=== PATIENT | male | born 1970 | race Caucasian/White ===

== ENCOUNTER 2022-05-17 13:47 | Outpatient (RCR) | payer OTHER | END 2022-05-20 | LOC: PT 13:47 | PROVIDERS: ATTEND Physician Assistant | DX: S22.070A Wedge compression fracture of T9-T10 vertebra, initial encounter for closed fracture (principal) ==

== ENCOUNTER → 2022-06-20 | Outpatient (RCR) | payer OTHER | LOC: PT 05-21 10:25 | PROVIDERS: ATTEND Physician Assistant | DX: S22.070A Wedge compression fracture of T9-T10 vertebra, initial encounter for closed fracture (principal) ==

== ENCOUNTER 2022-06-21 07:18 | Outpatient (RCR) | payer OTHER ==
[2022-07-21] MEDS ORDERED: HYDROCODON-ACE1 EA11 PO (11:32)
== END 2022-07-20 ==
LOC: PT 07:18
PROVIDERS: ATTEND Physician Assistant
DX: M48.54XA Collapsed vertebra, not elsewhere classified, thoracic region, initial encounter for fracture (principal)

== ENCOUNTER → 2022-07-11 | Outpatient (CLI) | payer OTHER | LOC: NM 08:43 | PROVIDERS: ATTEND Specialist | DX: M54.50 Low back pain, unspecified (principal); G89.29 Other chronic pain | CPT/HCPCS: 72148; 78306; A9503 ==

== ENCOUNTER 2022-07-21 10:08 | Emergency (ER) | payer OTHER ==
[~2022-07-21] VITALS: Ht 177.8 cm; Wt 69.4 kg
[2022-07-21 10:42] LABS: BASOPHILS % 0.3 % (0.0-1.0); EOSINOPHILS % 1.1 % (0.0-6.0); HEMATOCRIT 33.2 % (38.2-49.6); HEMOGLOBIN 10.7 g/dL (14.0-18.0); LYMPHOCYTES # (AUTO) 1.8 (1.0-3.2); LYMPHOCYTES % 52.9 % (18.0-39.1); MEAN CORPUSCULAR HEMOGLOBIN 32.4 pg (28-32); MEAN CORPUSCULAR HGB CONC 32.2 g/dL (31-35); MEAN CORPUSCULAR VOLUME 100.6 fL (81-99); MONOCYTES # (AUTO) 0.2 (0.2-0.8); MONOCYTES % 4.6 % (4.4-11.3); NEUTROPHILS # (AUTO) 1.4 (2.1-6.9); NEUTROPHILS % 40.8 % (38.7-80.0); PLATELET COUNT 143 x10e3/uL (140-360); RED CELL DISTRIBUTION WIDTH 14.5 % (11.7-14.4)
[2022-07-21 11:02] LABS: CLARITY,URINE SL CLOUDY (CLEAR); COLOR,URINE YELLOW (YELLOW); LEUKOCYTE ESTERASE ,URINE NEGATIVE (NEGATIVE); NITRITE,URINE NEGATIVE (NEGATIVE); PROTEIN,URINE DIPSTICK NEGATIVE (NEGATIVE)
[2022-07-21 11:03] LABS: KETONES,URINE NEGATIVE (NEGATIVE); URINE UROBILINOGEN 0.2 mg/dL (0.2 - 1)
[2022-07-21 11:04] LABS: AMORPHOUS SEDIMENT,URINE MODERATE (FEW); BACTERIA,URINE FEW /HPF; EPITHELIAL CELLS,URINE FEW /LPF; RBC,URINE 0-5 /HPF (0-5); WBC,URINE (MAN) 0-5 /HPF (0-5)
[2022-07-21 11:05] LABS: ALBUMIN 3.5 g/dL (3.5-5.0); ALBUMIN/GLOBULIN RATIO 0.6 (0.8-2.0); ANION GAP 16.9 mmol/L (8-16); CALCIUM 10.7 mg/dL (8.4-10.2); CREATININE, SERUM 1.1 mg/dL (0.72-1.25); POTASSIUM 3.9 mmol/L (3.5-5.1)
[2022-07-21] MEDS ORDERED: HYDROCODON-ACE1 EA11 PO (11:32)
[2022-07-21 11:36] VITALS: BP 139/96
== END 2022-07-21 11:30 | disposition home or self-care (01) ==
LOC: ER 10:15
DX: M48.56XG Collapsed vertebra, not elsewhere classified, lumbar region, subsequent encounter for fracture with delayed healing (principal); E83.52 Hypercalcemia; E78.5 Hyperlipidemia, unspecified
CPT/HCPCS: 36415; 71046; 80053; 81001; 85025; 99284